=== PATIENT | female | born 1955 | race Caucasian/White ===

== ENCOUNTER → 2016-07-20 | Outpatient (CLI) | payer MEDICARE ==
[~2016-07-20] MED LIST: CLARITIN 1010 MG/TAB PO; CLEOCIN HCL300 MG PO; DOLOPHINE HCL5 MG PO; LEVAQUIN 750MG750 M1 PO; MOTRIN 200200 MG/TAB PO; NEURONTIN800 MG/TAB PO; PREDNISONE 5MG5 MG PO; PRILOSEC 20MG20 MG PO; SEROQUEL 2525 MG/TAB PO; SUDAFED 12 HOU120 MG PO; VALIUM 5MG T5 MG/TAB PO; VITAMIND3 5000 PO; XANAX 1MG1 MG PO; ZANAFLEX 4MG TAB4 MG PO; ZANTAC 150MG T150 MG PO
== END ==
LOC: COL.PUL 07-08 09:00
DX: R06.02 Shortness of breath (principal)

== ENCOUNTER 2016-09-15 16:15 | Outpatient (RCR) | payer MEDICARE | END 2016-09-16 09:41 | disposition home or self-care (01) | LOC: MKS.ESL.PT 16:15 | DX: G35 Multiple sclerosis (principal); Z87.01 Personal history of pneumonia (recurrent) | CPT/HCPCS: G8990-GP; G8991-GP; G8992-GP; G8996-GN; G8997-GN; G9168-GN; G9169-GN; G9170-GN ==

== ENCOUNTER → 2016-09-23 | Outpatient (CLI) | payer MEDICARE | LOC: COL.PUL 12:43 | DX: R06.02 Shortness of breath (principal) | CPT/HCPCS: J7674 ==

== ENCOUNTER 2020-06-03 06:25 | Emergency (ER) | payer MEDICARE ==
[~2020-06-03] VITALS: Ht 165.1 cm; Wt 77.3 kg
[2020-06-03 06:47] VITALS: TEMP 97.8
[2020-06-03 08:05] LABS: BASO # 0.1 (0.0-0.2); BASO % 0.7 % (0.0-2.0); EOS # 0.2 (0.0-0.7); EOS % 2.2 % (0-4.0); GRAN # 6.2 (1.4-6.5); GRAN % 71.8 % (42.2-75.2); LYMPH # 1.6 (1.2-3.4); MEAN CELL VOLUME 89 fl (80.0-100.0); MEAN CORPUSCULAR HGB CONC 32 g/dl (33.0-37.0); MEAN PLATELET VOLUME 11.4 fl (7.4-10.4); MONO # 0.6 (0.1-0.6); MONO % 6.8 % (1.7-9.3); PLATELET COUNT 348 K/mm3 (130-400); RED BLOOD COUNT 3.23 M/mm3 (4.10-5.30); REDCELL DISTRIBUTION WIDTH-CV 15.1 % (11.5-14.5)
[2020-06-03 08:16] LABS: ALANINE AMINOTRANSFERASE 25 U/L (4-34); ALBUMIN 3.6 gm/dL (3.5-5.0); ALKALINE PHOSPHATASE 100 U/L (50-136); ANION GAP 8 mmol/L (7-16); AST,SGOT 29 U/L (15-37); BILIRUBIN,TOTAL 0.4 mg/dL (0.0-1.0); BLOOD UREA NITROGEN 24 mg/dL (7-17); C-REACTIVE PROTEIN 3.4 mg/dL (0.0-0.9); CALCIUM 8.8 mg/dL (8.4-10.2); CARBON DIOXIDE 28 mmol/L (22-30); CHLORIDE 101 mmol/L (98-107); CREATININE, serum 1.35 (0.52-1.25); GLUCOSE 129 mg/dL (74-106); LIPASE 46 U/L (23-300); POTASSIUM 4.2 mmol/L (3.4-5.0); SODIUM 137 mmol/L (137-145); TOTAL PROTEIN 6.3 gm/dL (6.4-8.2)
[2020-06-03 08:34] LABS: TROPONIN-I < 0.012 ng/mL (0.000-0.035)
[2020-06-03 08:49] LABS: HEMATOCRIT 28.7 % (37.0-47.0); HEMOGLOBIN 9.1 g/dl (12.5-16.0); MEAN CORPUSCULAR HEMOGLOBIN 28 pg (27.0-31.0)
[2020-06-03] MEDS ORDERED: K-DUR 10 MEQ T10 MEQ PO (09:55)
[2020-06-03] MEDS ORDERED: VOLTAREN-XR100 MG PO (09:56)
[2020-06-03] MEDS ORDERED: PROTONIX 40MG T40 MG PO (10:14)
[2020-06-03 10:52] VITALS: BP 112/70; PULSE 71
== END 2020-06-03 10:56 | disposition home or self-care (01) ==
LOC: COL.ER 06:25
PROVIDERS: Family Medicine
DX: K26.4 Chronic or unspecified duodenal ulcer with hemorrhage (principal); D64.9 Anemia, unspecified; G89.29 Other chronic pain; Z88.2 Allergy status to sulfonamides; Z88.6 Allergy status to analgesic agent; Z79.52 Long term (current) use of systemic steroids
CPT/HCPCS: C9113; J2405; J7120; Q9967

== ENCOUNTER → 2020-08-15 | Outpatient (CLI) | payer MEDICARE ==
[~2020-08-15] MED LIST changes: +K-DUR 10 MEQ T10 MEQ PO; +PROTONIX 40MG T40 MG PO; +VOLTAREN-XR100 MG PO
[2020-08-15 16:16] LABS: BASO # 0.1 (0.0-0.2); BASO % 0.9 % (0.0-2.0); EOS # 0.1 (0.0-0.7); EOS % 1.5 % (0-4.0); GRAN % 64.4 % (42.2-75.2); HEMATOCRIT 39.1 % (37.0-47.0); HEMOGLOBIN 12.8 g/dl (12.5-16.0); LYMPH % 26.2 % (20.0-51.0); MEAN CELL VOLUME 87 fl (80.0-100.0); MEAN CORPUSCULAR HEMOGLOBIN 28 pg (27.0-31.0); MEAN CORPUSCULAR HGB CONC 33 g/dl (33.0-37.0); MEAN PLATELET VOLUME 12.7 fl (7.4-10.4); MONO # 0.5 (0.1-0.6); MONO % 6.7 % (1.7-9.3); PLATELET COUNT 271 K/mm3 (130-400); RED BLOOD COUNT 4.51 M/mm3 (4.10-5.30); REDCELL DISTRIBUTION WIDTH-CV 15.3 % (11.5-14.5)
[2020-08-15 17:16] LABS: ALBUMIN 4.3 gm/dL (3.5-5.0); BILIRUBIN,TOTAL 0.5 mg/dL (0.0-1.0); CALCIUM 9.9 mg/dL (8.4-10.2); CHOLESTEROL RISK RATIO 4.5; CREATININE, serum 1.43 (0.52-1.25); POTASSIUM 3.3 mmol/L (3.4-5.0); TOTAL PROTEIN 7.3 gm/dL (6.4-8.2)
== END ==
LOC: COL.LAB 14:48
PROVIDERS: Family Medicine
DX: E11.9 Type 2 diabetes mellitus without complications (principal); E78.5 Hyperlipidemia, unspecified; E55.9 Vitamin D deficiency, unspecified; R53.83 Other fatigue; G35 Multiple sclerosis; E87.6 Hypokalemia

== ENCOUNTER 2023-08-14 15:58 | Emergency (ER) | payer MEDICARE ==
[~2023-08-14] VITALS: Ht 165.1 cm; Wt 73.6 kg
[2023-08-14 16:10] VITALS: TEMP 96.9
[2023-08-14] MEDS ORDERED: NS 1,000 ML IV ONE (17:00)
[2023-08-14 17:21] LABS: BASO # 0.1 K/mm3 (0.0-0.2); BASO % 0.8 % (0.0-2.0); EOS # 0.3 K/mm3 (0.0-0.7); EOS % 3.9 % (0.0-4.0); GRAN # 4.8 K/mm3 (1.4-6.5); GRAN % 62.9 % (42.2-75.2); HEMATOCRIT 40.1 % (37.0-47.0); HEMOGLOBIN 13.3 g/dl (12.5-16.0); LYMPH # 1.9 K/mm3 (1.2-3.4); LYMPH % 24.9 % (20.0-51.0); MEAN CELL VOLUME 92 fl (80.0-100.0); MEAN CORPUSCULAR HEMOGLOBIN 31 pg (27-31); MEAN CORPUSCULAR HGB CONC 33 g/dl (33.0-37.0); MEAN PLATELET VOLUME 12.6 fl (7.4-10.4); MONO # 0.6 K/mm3 (0.1-0.6); MONO % 7.2 % (1.7-9.3); PLATELET COUNT 286 K/mm3 (130-400); RED BLOOD COUNT 4.35 M/mm3 (4.10-5.30); REDCELL DISTRIBUTION WIDTH-CV 16.8 % (11.5-14.5)
[2023-08-14 17:32] LABS: ALBUMIN 3.1 gm/dL (3.4-4.8); BILIRUBIN,TOTAL 0.4 mg/dL (0.2-1.2); CALCIUM 9.9 mg/dL (8.4-10.2); CREATININE, serum 1.02 mg/dL (0.57-1.11); POTASSIUM 4.6 mmol/L (3.5-4.5); TOTAL PROTEIN 6.5 gm/dL (6.2-8.1)
[2023-08-14 17:37] LABS: URINE APPEARANCE Cloudy (CLEAR/HAZY); URINE COLOR Yellow (YELLOW); URINE GLUCOSE Negative (NEGATIVE); URINE PROTEIN(semi-quant) TRACE (NEGATIVE)
[2023-08-14 17:38] LABS: URINE BACTERIA Many /hpf (NONE SEEN); URINE BLOOD Negative (NEGATIVE); URINE KETONE 1+ (NEGATIVE); URINE NITRATE Negative (NEGATIVE); URINE UROBILINOGEN 0.2 E.U/dL (0.2-1.0)
[2023-08-14] MEDS ORDERED: cefTRIAXone 1 G in Water For Injection,Sterile 10 ML IV ONE (19:00)
[2023-08-14] MEDS ORDERED: CEPHALEXIN500 M1 PO (19:14)
[2023-08-14 19:17] VITALS: BP 79/58; PULSE 67
[2023-08-15 13:10] LABS: COLLECTION METHOD CATHETER
[2023-08-16] MEDS ORDERED: MACROBID 1100 MG/CAP PO (10:17)
== END 2023-08-14 19:31 | disposition home or self-care (01) ==
LOC: COL.ER 15:58
PROVIDERS: Nurse Practitioner
DX: M25.552 Pain in left hip (principal); G89.29 Other chronic pain; N39.0 Urinary tract infection, site not specified; Z88.2 Allergy status to sulfonamides
CPT/HCPCS: J0696; J7030